=== PATIENT | female | born 1950 | race Caucasian/White ===

== ENCOUNTER 2018-11-15 16:31 | Emergency (ER) | payer MEDICARE, BC ==
[~2018-11-15] VITALS: Ht 157.5 cm; Wt 50.8 kg
--- NOTE | 2018-11-15 17:23 | NUR ---
Patient discharged to home in stable conditon. Written and verbal after care instructions given to patient. Patient verbalizes understanding of instructions.
== END 2018-11-15 17:24 | disposition home or self-care (01) ==
LOC: ER 16:33
DX: S60.221A Contusion of right hand, initial encounter (principal); W18.30XA Fall on same level, unspecified, initial encounter; Y93.89 Activity, other specified; Y92.89 Other specified places as the place of occurrence of the external cause; Y99.8 Other external cause status
CPT/HCPCS: 73130; A4663